=== PATIENT | male | born 1945 | race Caucasian/White ===

== ENCOUNTER → 2022-03-09 09:17 | Outpatient (CLI) | payer OTHER, SELFPAY ==
[2022-03-09 10:45] LABS: COVID19 -Nasal RAPID Negative (Negative)
--- NOTE | 2022-03-10 18:59 | DI.NM.S_ITS ---
DATE OF SERVICE: PROCEDURE: Exercise perfusion study. INDICATION: Exertional chest pain with underlying hypertension, hyperlipidemia, and coronary artery disease next. RADIOPHARMACEUTICAL: 25.6 mCi technetium-99m Myoview IV was injected at stress and 25.2 mCi technetium-99m Myoview IV was injected at rest. CARDIAC STRESS: The patient walked on John protocol for 7 minutes and 31 seconds, achieved maximum heart rate of 110, which was 76 percent of target heart rate. Baseline blood pressure was 160/90 and heart rate 63 beats per minute. Peak blood pressure 210/110 mmHg suggestive of hypertensive blood pressure response. BENITEZ 0 percent. METs, 8.5 METs of workload. The patient had chest tightness on a scale of 1-10 during exercise, which got resolved 5 minutes in recovery. During stress, there were no convincing ischemic changes seen. Occasional PVCs without any ventricular tachycardia. No significant dyspnea. The patient felt fatigue as well. RAW DATA: There is increased subdiaphragmatic activity. Gastric shadow seen behind the heart. GATED STUDY: Stress LV ejection fraction 64 percent without any obvious wall motion abnormalities. Resting end-diastolic volume 129 mL. TID ratio 0.99, which is within normal limits. Lung/heart ratio 0.24, which is within normal limits. MYOCARDIAL PERFUSION: Stress supine, resting supine and stress prone images were compared to each other. There is a normal myocardial perfusion. CONCLUSION: 1. This is a normal myocardial perfusion study. However, this is a submaximal exercise stress test perfusion study. The patient achieved 76 percent of target heart rate with maximum heart rate 110. Hypertensive blood pressure response with peak blood pressure 210/110 mmHg. Mild chest tightness during exercise, which got resolved in 5 minutes in recovery. Occasional premature ventricular contractions without any complicated ventricular arrhythmias. 2. Stomach shadow seen behind the heart. Patient may have diaphragmatic hernia. In view of submaximal exercise stress test, not diagnostic to rule out underlying significant coronary artery disease. Correlate clinically. Peter Resendiz - TIFFANIE/kimmy/AMANDA doc#: [id number]/job#: [id number] dd: 03/10/2022 17:38:00 dt: 03/10/2022 18:36:00 DICTATING MD/COPIES TO: Avery Schmidt MD COPIES MNE: PEDRITO;
== END ==
PROVIDERS: PCP Internal Medicine; Referring Provider Internal Medicine Cardiovascular Disease; Visit Provider Internal Medicine Cardiovascular Disease
DX: R07.89 Other chest pain (principal); I25.10 Atherosclerotic heart disease of native coronary artery without angina pectoris; I10 Essential (primary) hypertension; E78.5 Hyperlipidemia, unspecified; I49.3 Ventricular premature depolarization; Z20.822 Contact with and (suspected) exposure to COVID-19
CPT/HCPCS: 78452; 87635; 93017; A9502